=== PATIENT | female | born 1990 ===

== ENCOUNTER 2016-12-02 16:28 | Outpatient (CLI) | payer BC, OTHER ==
[~2016-12-02] VITALS: Ht 154.9 cm; Wt 87.0 kg
[2016-12-02] MEDS ORDERED: ONDANSETRON 4 MG TAB PO PRN (19:15)
[2016-12-02] MEDS ORDERED: ACETAMINOPHEN/CODEINE 300/30MG TAB PO ONE (19:15)
[2016-12-02] MEDS ORDERED: PATIENT'S ALLERGY INFO NEEDS ENTERED SCH (19:30)
[2016-12-02] MEDS ORDERED: PATIENT'S HEIGHT AND/OR WEIGHT NEEDED SCH (19:30)
[2016-12-02 19:50] LABS: BASO % 0.2 %; BASO ABS # 0.02 K/uL (0-0.2); COMPLETE YES; EOS % 0.7 %; HEMATOCRIT 36.3 % (37-47); IG% 1.2 %; LYMPH % 21.7 %; LYMPH ABS # 1.81 K/uL (1.2-3.4); MEAN CELL VOLUME 81.2 fL (80-100); MEAN CORPUSCULAR HEMOGLOBIN 25.5 pg (25-34); MEAN CORPUSCULAR HGB CONC 31.4 g/dl (32-36); MEAN PLATELET VOLUME 12.2 fL (7.4-10.4); MONO % 12.8 %; NEUT % 63.4 %; PLATELET COUNT 267 K/uL (130-400); RED BLOOD COUNT 4.47 M/uL (4.2-5.4); WHITE BLOOD COUNT 8.35 K/uL (4.8-10.8)
[2016-12-02 20:14] LABS: BUN/CREATININE RATIO 14.4 (10-20); CALCIUM 8.7 mg/dl (8.5-10.1); CREATININE 0.63 mg/dl (0.60-1.20); POTASSIUM 3.6 mmol/L (3.5-5.1)
[2016-12-02] MEDS ORDERED: SERT25TA PO (20:14)
[2016-12-02] MEDS ORDERED: FERR50TA3 (20:14)
[2016-12-02] MEDS ORDERED: VALA500T60 PO (20:14)
[2016-12-02] MEDS ORDERED: SERT50TA PO (20:14)
[2016-12-02 20:15] VITALS: Ht 154.9 cm; Wt 87.0 kg
[2016-12-02 20:16] LABS: ALB/GLOB RATIO 0.7 (0.9-2)
[2016-12-02 21:06] LABS: MANUAL MICROSCOPIC REQUIRED? NO; REVIEW REQ? NO; URINE APPEARANCE CLEAR (CLEAR); URINE BILIRUBIN NEG (NEG); URINE COLOR YELLOW; URINE EPITHELIAL CELL AUTO 20-30 /lpf (0-5); URINE NITRITE NEG (NEG); URINE SPECIFIC GRAVITY 1.019 (1.000-1.030); UROBILINOGEN NEG (NEG); ZZUR CULT IF INDIC CLEAN CATCH NO
--- NOTE | 2016-12-02 21:41 | Discharge Instructions ---
Discharge Instructions Date of Service Dec 02, 2016. Admission Reason for Admission: Check Labor Discharge Discharge Diagnosis / Problem: NEW OB PATIENT AT 40.5 WKS Discharge Goals Goal(s): Continuing OB care Activity Recommendations Activity Limitations: as noted below Lifting Limitations: no more than 10 pounds Exercise/Sports Limitations: gradually increase as tolerated May Resume Sexual Activity: after follow-up appointment Shower/Bathe: no limitations Driving or Machine Use: no limitations SPECIAL CARE INSTRUCTIONS: Call Doctor if: * Regular contractions every 5 minutes. * Bleeding * Water breaks or is leaking * Decreased movement * Fever >100.4 degrees F * Pain not relieved by routine measures or pain medication ordered. FOLLOW UP VISIT: Return to Labor and Delivery on 12/05/16_for Induction of labor and call in the morning at 6 am . Follow-up Visit with: When: . Current Hospital Diet Patient's current hospital diet: Regular OB Diet Discharge Diet Recommended Diet: Regular Diet Pending Studies Studies pending at discharge: no Medical Emergencies . Who to Call and When: Medical Emergencies: If at any time you feel your situation is an emergency, please call 911 immediately. . Non-Emergent Contact Non-Emergency issues call your: Surgeon Call Non-Emergent contact if: temperature is above 100.5, your pain is not controlled, your pain is worsening . . "Provider Documentation" section prepared by Adiel Pacheco. . VTE Core Measure Inpt VTE Proph given/why not?: Treatment not indicated
[2016-12-10] MEDS ORDERED: MTR600X PO (09:44)
[2016-12-10] MEDS ORDERED: OXYC-57 PO (09:44)
== END 2016-12-02 22:00 | disposition home or self-care (01) ==
LOC: C.LD 16:28 → C.OPB 16:28 → EEVIPCON 16:28 → C.OPB 22:00
PROVIDERS: ATTEND Obstetrics & Gynecology
DX: O99.89 Other specified diseases and conditions complicating pregnancy, childbirth and the puerperium (principal); R51 Headache; M54.9 Dorsalgia, unspecified; Z3A.40 40 weeks gestation of pregnancy

== ENCOUNTER 2016-12-05 11:46 | Inpatient (IN) | payer OTHER ==
[~2016-12-05] VITALS: Ht 162.6 cm; Wt 87.1 kg
[~2016-12-05 11:46] MED LIST: FERR50TA3; SERT50TA PO; VALA500T60 PO
[2016-12-05] MEDS ORDERED: LACTATED RINGER'S 1000ML 1,000 ML IV PRN (17:13)
[2016-12-05] MEDS ORDERED: DINOPROSTONE 10 MG INSERT PV ONE (17:15)
[2016-12-05 17:19] VITALS: Ht 162.6 cm; Wt 87.1 kg
[2016-12-05 17:32] LABS: MEAN CELL VOLUME 81.6 fL (80-100); MEAN CORPUSCULAR HEMOGLOBIN 26.5 pg (25-34); MEAN CORPUSCULAR HGB CONC 32.5 g/dl (32-36); MEAN PLATELET VOLUME 11.6 fL (7.4-10.4); PLATELET COUNT 243 K/uL (130-400); RED BLOOD COUNT 4.41 M/uL (4.2-5.4)
--- NOTE | 2016-12-05 17:42 | HISTORY & PHYSICAL EXAMINATION ---
DATE OF ADMISSION: 12/05/2016 CHIEF COMPLAINT: Scheduled induction of labor secondary to post-dates and late transfer of care. HISTORY OF PRESENT ILLNESS: The patient is a 26-year-old 1, para 0 at 41 weeks and 1 day gestation who presents to labor and delivery for an induction of labor secondary to post-dates. She has been seeing a physician in [place], [place] for her care due to her experience at [facility], she decided to come to [facility] for her labor and delivery. She was seen here last Monday on December 02 for her contractions and possible induction of labor secondary to being post-dates. She was unable to be induced on Monday due to census and therefore was scheduled for induction today. Her care has been uncomplicated, per patient. records have been reviewed. She is GBS negative. She is currently 1 cm, 40% effaced, and minus 3 station. heart tones are category 1. PAST MEDICAL HISTORY: Significant for depression, anxiety and posttraumatic stress disorder, currently on Zoloft 50 mg daily; history of kidney stones and bilateral hip and back pain and has been going to physical therapy for her pain, oral ulcers and is currently on Valtrex, denies urogenital lesions PAST SURGICAL HISTORY: She had a hematoma on her left shoulder which was removed, on October 2016, normal pathology was noted MEDICATIONS: vitamins, Valtrex 500 mg b.i.d., Zoloft 50 mg daily, iron supplement and vitamins and a Ventolin inhaler as needed. ALLERGIES: No known drug allergies. SOCIAL HISTORY: The patient denies tobacco, alcohol or drug use. LABS: Blood type is O positive, group B strep negative, rubella immune, hepatitis B surface antigen negative, RPR nonreactive. PHYSICAL EXAMINATION: VITAL SIGNS: Blood pressure is 126/82, heart rate 96, temperature 98.4. GENERAL: The patient is awake, alert and oriented x3. She is in no acute distress. HEART: Regular rate and rhythm. LUNGS: Clear to auscultation bilaterally. ABDOMEN: Gravid uterus, appropriate for gestational age. Estimated weight 8-9 pounds. EXTREMITIES: No clubbing, cyanosis or calf tenderness. VAGINAL EXAM: She is 1 cm, 40% effaced, and minus 3 station. heart tones are category 1. ASSESSMENT AND PLAN: A 26-year-old 1, para 0 at 41 weeks and 1 day gestation, will be admitted to labor and delivery for an induction of labor secondary to post-dates. Will begin with Cervidil and will augment labor as needed. Anticipate vaginal delivery. [facility]
[2016-12-05] MEDS ORDERED: SERTRALINE HCL 50 MG TAB PO ONE (20:00)
[2016-12-06] MEDS ORDERED: LACTATED RINGER'S 1000ML 500 ML IV PRN ×2 (07:24→17:46)
[2016-12-06] MEDS ORDERED: OXYTOCIN 30 UNITS/500ML NSS IV PRN (07:30)
[2016-12-06] MEDS: SERTRALINE HCL 50 MG TAB PO SCH (08:04)
[2016-12-06] MEDS: LACTATED RINGER'S 1000ML 1,000 ML IV SCH ×3 (08:21→18:40)
[2016-12-06] MEDS ORDERED: NURSING VERBAL MED ORDER ONE (09:00)
[2016-12-06] MEDS ORDERED: ACETAMINOPHEN 500 MG TAB PO ONE (09:03)
[2016-12-06] MEDS ORDERED: BUTORPHANOL TARTRATE 1 MG/ML VIAL IV PRN (13:00)
[2016-12-06] MEDS ORDERED: BUPIVACAINE 0.25% 30 ML VIAL ONE (17:21)
[2016-12-06] MEDS ORDERED: EpHEDrine SULFATE INJ 50 MG/ML AMP ONE (17:21)
[2016-12-06] MEDS ORDERED: FENTANYL 2MCG/ML ROPIV 1.25MG/ML 100ML BAG EPI ONE (17:22)
[2016-12-06] MEDS ORDERED: FENTANYL CITRATE INJ 50 MCG/1 ML 2 ML VIAL ONE (17:22)
[2016-12-06] MEDS ORDERED: NALOXONE HCL INJ 1 MG in SODIUM CHLORIDE 0.9% 1000ML 1,000 ML IV PRN (17:46)
[2016-12-06] MEDS ORDERED: ONDANSETRON INJ 2 MG/ML 2 ML VIAL IV PRN (18:00)
[2016-12-06] MEDS ORDERED: PROMETHAZINE HCL INJ 6.25 MG in SODIUM CHLORIDE 0.9% 50ML 50 ML IV PRN (18:00)
[2016-12-06] MEDS ORDERED: NALOXONE HCL INJ 0.4 MG/1 ML VIAL/CARP IV PRN (18:00)
[2016-12-06] MEDS ORDERED: NALBUPHINE HCL INJ 10 MG/ML AMP IV PRN (18:00)
[2016-12-06] MEDS ORDERED: EpHEDrine SULFATE INJ 50 MG/ML AMP IV PRN (18:00)
[2016-12-06] MEDS ORDERED: DiphenhydrAMINE HCL 50 MG/ML VIAL IV PRN (18:00)
[2016-12-06] MEDS: FENTANYL 2MCG/ML ROPIV 1.25MG/ML 100ML BAG EPI PRN (19:05)
[2016-12-07] VITALS (14 sets, daily range): BP systolic 97–112; BP diastolic 58–70; PULSE 88–111; TEMP 36.7–37.3; O2SAT 92–98
[2016-12-07] MEDS: FENTANYL 2MCG/ML ROPIV 1.25MG/ML 100ML BAG EPI PRN (01:40)
[2016-12-07] MEDS: LACTATED RINGER'S 1000ML 1,000 ML IV SCH (02:29)
[2016-12-07] MEDS ORDERED: LACTATED RINGER'S 1000ML 1,000 ML IV SCH ×2 (03:42→06:00)
[2016-12-07] MEDS ORDERED: CITRIC ACID/SODIUM CITRATE 15 ML UDC PO STA (03:48)
[2016-12-07] MEDS ORDERED: CEFAZOLIN SOD 2000 MG in DEXTROSE 5% 50ML IV STA (04:02)
[2016-12-07] MEDS ORDERED: FENTANYL CITRATE INJ 50 MCG/1 ML 2 ML VIAL ONE (04:23)
[2016-12-07] MEDS ORDERED: MoRPHine SULFATE PF 1 MG/ML 10 ML AMP/VIAL ONE (04:23)
[2016-12-07] MEDS ORDERED: MIDAZOLAM HCL 1 MG/ML 2ML VIAL ONE (04:23)
[2016-12-07] MEDS ORDERED: OXYTOCIN INJ 10 UNITS/ML VIAL ONE ×2 (05:05)
[2016-12-07] MEDS ORDERED: KETOROLAC TROMETHAMINE 30 MG/ML VIAL ONE (05:05)
[2016-12-07] MEDS ORDERED: LIDOCAINE/EPINEPHRINE 2% 1:200,000 20 ML SDV ONE (05:21)
[2016-12-07] MEDS ORDERED: DC INTRASPINAL MORPHINE PRN (05:30)
[2016-12-07] MEDS ORDERED: CONTINUE MEDICATION ONE (05:30)
[2016-12-07] MEDS ORDERED: MoRPHine SULFATE 2 MG/ML CARP IV PRN (05:30)
[2016-12-07] MEDS ORDERED: NO NARCOTICS OR SEDATIVES SCH (05:30)
[2016-12-07] MEDS ORDERED: MEPERIDINE HCL 25 MG/ML CARP IV PRN (05:30)
[2016-12-07] MEDS ORDERED: MoRPHine SULFATE PF 1 MG/ML 10 ML AMP/VIAL EPI PRN (05:30)
[2016-12-07] MEDS ORDERED: DiphenhydrAMINE HCL 50 MG/ML VIAL IV PRN ×2 (05:30→22:00)
--- NOTE | 2016-12-07 05:58 | Anesthesiology Progress Note ---
Anesthesia Post Op Note Date & Time Dec 07, 2016 at 05:58 Vital Signs Pain Intensity: 10.0 Notes Mental Status: alert / awake / arousable, participated in evaluation Pt Amnestic to Procedure: Yes Nausea / Vomiting: adequately controlled Pain: adequately controlled Airway Patency, RR, SpO2: stable & adequate BP & HR: stable & adequate Hydration State: stable & adequate Neuraxial Anesthesia: was administered, sensory block is resolving Anesthetic Complications: no major complications apparent
[2016-12-07] MEDS ORDERED: BENZOCAINE 20% AER SPR 82.5 GM CAN EXT PRN (06:00)
[2016-12-07] MEDS ORDERED: MAGNESIUM HYDROXIDE SUSP 30 ML UDC PO PRN (06:00)
[2016-12-07] MEDS ORDERED: LANOLIN OINT EXT PRN ×2 (06:00)
[2016-12-07] MEDS ORDERED: SENNA 8.6 MG TAB PO PRN (06:00)
[2016-12-07] MEDS ORDERED: HYDROCORTISONE ACETATE 25 MG SUPP PR PRN (06:00)
[2016-12-07] MEDS ORDERED: SUPERCREAM 0.870 % 15GM JAR EXT PRN (06:00)
--- NOTE | 2016-12-07 06:13 | [facility] Post Operative Brief Note ---
Immediate Operative Summary Operative Date Dec 07, 2016. Pre-Operative Diagnosis Failure to decend and maternal exhaustion. Post-Operative Diagnosis same Procedure(s) Performed c/sec Surgeon Dr Troncoso Cloth Colorer Surgeon(s) Tejal Soliman RN Estimated Blood Loss 700 Findings dictated Fluids (cc crystalloids) 1500 Specimens Placenta Cord Blood Cord Blood Gases (Arterial and Venous) Drains 150 Complication(s) None Disposition Recovery Room / PACU
[2016-12-07] MEDS: OXYTOCIN INJ 20 UNITS in LACTATED RINGER'S 1000ML 1,000 ML IV SCH ×2 (06:26→14:57)
[2016-12-07] MEDS: DOCUSATE SODIUM 100 MG CAP PO SCH ×2 (08:30→19:58)
[2016-12-07] MEDS: SIMETHICONE 80 MG CHEW PO SCH ×4 (08:30→19:58)
[2016-12-07] MEDS: SERTRALINE HCL 50 MG TAB PO SCH (08:30)
[2016-12-07] MEDS: PRENATAL VITAMIN TAB PO SCH (08:31)
[2016-12-07] MEDS ORDERED: ALBUTEROL HFA 8 GM INHALER INH PRN (09:30)
--- NOTE | 2016-12-07 10:02 | OPERATIVE REPORT ---
DATE OF OPERATION: 12/07/2016 INDICATION FOR PROCEDURE: This is a 26-year-old who has received care in [place]. She showed up at 41 weeks, unassigned. The patient to see Dr. Farmer. She had been scheduled for induction with OB provider on 12/05/2016. The patient expressed dissatisfaction with the provider and wanted to deliver at [facility]. Decision therefore was made about by Dr. Farmer to have patient induced on the same day, 12/05/2016 at [facility]. The patient was admitted on the above-mentioned day, she received Cervidil on that day. On the morning of 12/06/2016, she was started on Pitocin. The patient received Pitocin all day and had spontaneous rupture of membranes around 1400 hours. She progressed to fully dilation around 2:00 a.m. on 12/07/2016. After an hour and a half of pushing there was no change in station. The patient at this point expressed severe fatigue. She was exhausted and could not push anymore. We discussed risks of continuing attempt to push including delaying and having her rest a little bit and pushing again, patient absolutely was not interested and did not want any more pushing. She was insistent on having . After risks, benefits and alternatives were discussed with the patient, we decided to proceed with a . PREOPERATIVE DIAGNOSES: 1. Failure to descend. 2. Maternal exhaustion. POSTOPERATIVE DIAGNOSES: Same. PROCEDURES: Primary section. SURGEON: Dr. Troncoso. HOSPICE CARE CONSULTANT: Lesley Soliman RN. ESTIMATED BLOOD LOSS: 700 mL. IV FLUIDS: 1600 mL. URINE OUTPUT: 150 mL clear urine at the end of the procedure. FINDINGS: Live infant male weighing 9 pounds 9 ounces. The uterus and adnexa appeared grossly normal. The bowel had adhesions, which was adhesions of the large bowel to the left side of the uterus on the side of the broad ligament. This was extensive adhesion, decision therefore was made not to dissect the adhesions. SPECIMENS: 1. Placenta. 2. Cord blood. 3. Cord gases. COMPLICATIONS: None. DISPOSITION: Stable to recovery room. DESCRIPTION OF PROCEDURE: The patient was taken to the operating room where she was prepped and draped in normal sterile fashion. Timeout was called. A Pfannenstiel incision was made with a scalpel and carried down to the fascia. Fascia was incised in the midline and extended laterally on both sides. The rectus abdominis muscle was identified. Peritoneum was entered sharply. Once inside the abdomen, the findings were as dictated above. An Moises retractor was placed in the abdomen for retraction. The vesicouterine peritoneum was sharply dissected off the lower segment of the uterus. A low transverse incision was made in the uterus and extended laterally on both sides using bandage scissors. Infant's head was delivered atraumatically. Mouth was suctioned, cord was clamped and handed over to the awaiting pediatric team. 's weight is 9 and 9, is in the pediatric record. The placenta was manually removed. Uterus was exteriorized and cleared of all clots and debris. Uterus was closed in 2 layers using Vicryl stitch. The vesicouterine peritoneum was reapproximated using plain suture. Copious amount of irrigation was used to irrigate the abdomen. The Moises retractor was removed and the peritoneum closed in a running fashion using plain suture. The rectus abdominis muscle was loosely approximated using a [id number] plain suture. The fascia was closed in a running fashion using Vicryl stitch, subQ space was reapproximated using plain suture and skin was closed with miki. All instruments are removed from the abdomen and accounted for x2 including needles, sponges and retractors. Baby and mother are doing well in recovery. I attest to the content of the Intraoperative Record and any orders documented therein. Any exception s are noted below.
[2016-12-07] MEDS: KETOROLAC TROMETHAMINE 30 MG/ML VIAL IV. PRN ×2 (10:15→20:00)
--- NOTE | 2016-12-07 20:25 | OB/GYN Progress Note ---
REEL SLITTER Progress Note Date of Service: Dec 07, 2016. Postop check Patient is seen and examined Feels well, no complaints Pain is under control with meds No CP/ SOB/ Dizziness/ N&V/ VB/ Leg pain Not OOB yet Tolerating clears and regular diet Flatus+ Bottle feeding her baby Date Time Temp Pulse Resp B/P (MAP) Pulse Ox O2 Delivery O2 Flow Rate FiO2 12/07/16 17:15 20 98 12/07/16 16:15 20 96 12/07/16 16:15 36.9 96 20 105/59 (74) 96 Room Air 12/07/16 16:15 96 Room Air 12/07/16 15:15 16 95 12/07/16 14:15 16 97 12/07/16 13:15 16 94 12/07/16 12:15 16 96 12/07/16 11:15 20 97 12/07/16 10:15 18 96 12/07/16 10:15 37.3 96 18 112/70 (84) 96 Room Air 12/07/16 09:15 96 Room Air 12/07/16 09:15 96 Room Air 12/07/16 09:15 18 96 8-Hour Column 12/07/16 12/07/16 12/08/16 15:59 23:59 07:59 Intake Total 1499 ml Output Total 500 ml Balance 999 ml 24-Hour Column 12/08/16 07:59 Intake Total 1499 ml Output Total 500 ml Balance 999 ml PE: General: Alert, orientedx3, NAD CVS: S1S2 RRR Lungs: CTAB Abd: soft, NT, ND, BS+, Dressing dry intact No VB Ext: NT, 2+/2+ edema AP: 26 yo female s/p PCS , pod#0 VSS Afebrile doing well Continue to routine postop care Encourage PO intake, soraya kaufman D/Carlos pinto in am
[2016-12-07] MEDS ORDERED: PROMETHAZINE HCL INJ 25 MG in SODIUM CHLORIDE 0.9% 50ML 50 ML IV PRN (22:00)
[2016-12-07] MEDS ORDERED: ZOLPIDEM TARTRATE 5 MG TAB PO PRN (22:00)
[2016-12-07] MEDS ORDERED: KETOROLAC TROMETHAMINE 30 MG/ML VIAL IV. PRN (22:00)
[2016-12-07] MEDS ORDERED: ONDANSETRON INJ 2 MG/ML 2 ML VIAL IV PRN (22:00)
[2016-12-07] MEDS ORDERED: MEPERIDINE HCL 50 MG/ML CARP IV PRN ×2 (22:00)
[2016-12-08] MEDS ORDERED: COUGH DROP (SUGAR FREE) LOZ 24 LOZ/1 BOX ONE (03:31)
[2016-12-08 03:35] VITALS: BP 107/68; PULSE 102; TEMP 37; O2SAT 96
[2016-12-08] MEDS: OXYCODONE/ACETAMINOPHEN 5-325 TAB PO PRN ×4 (06:20→20:09)
[2016-12-08] MEDS: IBUPROFEN 600 MG TAB PO PRN ×4 (06:23→20:09)
[2016-12-08 06:32] LABS: HEMATOCRIT 28.4 % (37-47); MEAN CELL VOLUME 81.4 fL (80-100); MEAN CORPUSCULAR HEMOGLOBIN 25.8 pg (25-34); MEAN CORPUSCULAR HGB CONC 31.7 g/dl (32-36); MEAN PLATELET VOLUME 10.5 fL (7.4-10.4); PLATELET COUNT 269 K/uL (130-400); RED BLOOD COUNT 3.49 M/uL (4.2-5.4); WHITE BLOOD COUNT 15.98 K/uL (4.8-10.8)
[2016-12-08 07:09] LABS: ANISOCYTOSIS PRESENT; BASO % 0.2 %; BASO ABS # 0.03 K/uL (0-0.2); COMPLETE YES; EOS % 1.1 %; IG% 1.1 %; LARGE PLATELETS 1+; LYMPH % 13.2 %; LYMPH ABS # 2.11 K/uL (1.2-3.4); MONO % 12.1 %; NEUT % 72.3 %
[2016-12-08] MEDS: PRENATAL VITAMIN TAB PO SCH (08:14)
[2016-12-08] MEDS: SERTRALINE HCL 50 MG TAB PO SCH (08:15)
[2016-12-08] MEDS: DOCUSATE SODIUM 100 MG CAP PO SCH ×2 (08:15→20:08)
[2016-12-08] MEDS: SIMETHICONE 80 MG CHEW PO SCH ×4 (08:15→20:08)
[2016-12-08] MEDS: FERROUS SULFATE 325 MG TAB PO SCH (08:15)
[2016-12-08 08:20] VITALS: BP 111/72; PULSE 108; TEMP 36.8; O2SAT 99
--- NOTE | 2016-12-08 11:18 | OB/GYN Progress Note ---
PAPER RECLAIMING MACHINE OPERATOR Progress Note Date of Service Dec 08, 2016. Subjective conversation w/ patient, physical exam Ambulation: ambulating normally Voiding: no voiding problems Passing Gas: Yes Diet Tolerance: Regular Diet Lochia: Small Feeding Type: Breast Feeding Pain: 10/03 Notes: Doing well. Pain well controlled. Hodge catheter removed this AM. Incision dressing dry. Tolerating regular diet, +Flatus. Objective Vital Signs Date Time Temp Pulse Resp B/P (MAP) Pulse Ox O2 Delivery O2 Flow Rate FiO2 12/08/16 08:20 36.8 108 16 111/72 (85) 99 Room Air 12/08/16 08:20 Room Air 12/08/16 03:35 37.0 102 18 107/68 (81) 96 Room Air 12/07/16 23:45 36.7 88 18 97/62 (74) 96 Room Air 12/07/16 23:45 96 Room Air 12/07/16 21:15 18 93 12/07/16 20:15 16 92 12/07/16 19:50 36.9 111 16 99/58 (72) 93 Room Air 12/07/16 19:15 16 93 12/07/16 17:15 20 98 12/07/16 16:15 20 96 12/07/16 16:15 36.9 96 20 105/59 (74) 96 Room Air 12/07/16 16:15 96 Room Air 12/07/16 15:15 16 95 12/07/16 14:15 16 97 12/07/16 13:15 16 94 12/07/16 12:15 16 96 Physical Exam General Appearance: WELL-APPEARING Respiratory/Chest: chest non-tender, lungs clear Cardiovascular: regular rate, rhythm Abdomen: normal bowel sounds, soft Fundus: Firm Incision Description: Clean, Dry & Intact Extremities: normal range of motion, non-tender, no calf tenderness Laboratory Results Last 24 Hours Test 12/08/16 06:24 White Blood Count 15.98 K/uL Red Blood Count 3.49 M/uL Hemoglobin 9.0 g/dL Hematocrit 28.4 % Mean Corpuscular Volume 81.4 fL Mean Corpuscular Hemoglobin 25.8 pg Mean Corpuscular Hemoglobin Concent 31.7 g/dl Platelet Count 269 K/uL Mean Platelet Volume 10.5 fL Neutrophils (%) (Auto) 72.3 % Lymphocytes (%) (Auto) 13.2 % Monocytes (%) (Auto) 12.1 % Eosinophils (%) (Auto) 1.1 % Basophils (%) (Auto) 0.2 % Neutrophils # (Auto) 11.57 K/uL Lymphocytes # (Auto) 2.11 K/uL Monocytes # (Auto) 1.93 K/uL Eosinophils # (Auto) 0.17 K/uL Basophils # (Auto) 0.03 K/uL RDW Standard Deviation 60.3 fL RDW Coefficient of Variation 20.9 % Immature Granulocyte % (Auto) 1.1 % Immature Granulocyte # (Auto) 0.17 K/uL Large Platelets 1+ Anisocytosis PRESENT Assessment and Plan Post-Op Day Number: 1 Continue Routine Care: -Continue routine postop care -Advance diet and activity as tolerated
[2016-12-08 12:00] VITALS: BP 123/69; PULSE 88; TEMP 36.9
[2016-12-08 15:40] VITALS: BP 117/79; PULSE 98; TEMP 36.9; O2SAT 99
[2016-12-08] MEDS ORDERED: BISACODYL 5 MG TABEC PO ONE (22:00)
[2016-12-08 23:25] VITALS: BP 112/68; PULSE 90; TEMP 36.8; O2SAT 96
[2016-12-09] MEDS: IBUPROFEN 600 MG TAB PO PRN ×5 (01:46→21:26)
[2016-12-09] MEDS: OXYCODONE/ACETAMINOPHEN 5-325 TAB PO PRN ×5 (01:47→21:27)
[2016-12-09] MEDS ORDERED: BISACODYL 10 MG SUPP PR PRN (06:00)
[2016-12-09 06:41] LABS: HEMATOCRIT 25.8 % (37-47)
[2016-12-09 07:45] VITALS: PULSE 80; TEMP 36.5
[2016-12-09] MEDS: DOCUSATE SODIUM 100 MG CAP PO SCH ×2 (08:05→19:49)
[2016-12-09] MEDS: PRENATAL VITAMIN TAB PO SCH (08:06)
[2016-12-09] MEDS: SIMETHICONE 80 MG CHEW PO SCH ×4 (08:06→19:49)
[2016-12-09] MEDS: SERTRALINE HCL 50 MG TAB PO SCH (08:06)
[2016-12-09] MEDS: FERROUS SULFATE 325 MG TAB PO SCH ×2 (08:06→19:49)
--- NOTE | 2016-12-09 12:20 | OB/GYN Progress Note ---
UNIVERSITY ADMINISTRATOR Progress Note Date of Service: Dec 09, 2016. Patient is seen and examined. She feels well, no complaints. Pain is under control with oral meds. Ambulating without dizziness Voiding without difficulty Tolerating regular diet with out N&V Flatus + BM NEG Bleeding is minimal No fever/ chills/ CP/ SOB/ N&V/ Leg pain Bottle feeding without problems Date Time Temp Pulse Resp B/P (MAP) Pulse Ox O2 Delivery O2 Flow Rate FiO2 12/09/16 07:45 36.5 80 16 Room Air 12/09/16 07:45 Room Air 12/08/16 23:25 36.8 90 18 112/68 (83) 96 Room Air 12/08/16 23:25 96 Room Air 12/08/16 15:40 Room Air 12/08/16 15:40 36.9 98 16 117/79 (92) 99 Room Air Last 24 Hours Test 12/09/16 06:09 Hemoglobin 8.3 g/dL Hematocrit 25.8 % PE: General: Alert, orientedx3, NAD CVS: S1S2 RRR Lungs; CTAB Abd: soft, NT, fundus firm, below Umbilicus Incision: Clean, dry, intact Perineum intact, Lochia rubra minimal Ext; NT, no edema AP: 3 yo s/p C Section, pod# 2 VSS Afebrile doing well Continue routine postop care Encourage ambulation, PO intake Anemic: start iron bid All questions were answered D/C home in am
[2016-12-09 15:30] VITALS: BP 146/75; PULSE 89; TEMP 36.8; O2SAT 99
--- NOTE | 2016-12-09 17:06 | OB/GYN Progress Note ---
SHEEP SORTER Progress Note Date of Service: Dec 09, 2016. Patient is reevaluated She c/o left luna / bone pain since this afternoon Walking and SCD's made it worse But she reports it at rest too 6/10 in intensity She also c/o more swelling on that side VSS afebrile Ext: Anaid's sign neg on right side, minimal pretibial edema + Anaid's sign on the left ( but reports pain anterior tibia), no cords or erythema, no bruise, tender by patient to touch, 1+ pretibial and dorsum of foot edema Plan: pain meds, Doppler US and reevaluate
[2016-12-09 19:30] VITALS: BP 138/82; PULSE 88; TEMP 36.8
--- NOTE | 2016-12-09 19:35 | DIAGNOSTIC IMAGING REPORT ---
LEFT LOWER EXTREMITY VENOUS DOPPLER HISTORY: pain, s/p COMPARISON STUDY: Left leg edema. FINDINGS: There is normal compressibility, flow, and augmentation within the left lower extremity deep venous system. Mild pretibial subcutaneous edema. IMPRESSION: No DVT within the left lower extremity. Electronically signed by: Stoney Longo M.D. 12/09/2016 7:34 PM Dictated Date/Time: 12/09/2016 7:34 PM
--- NOTE | 2016-12-09 20:25 | OB/GYN Progress Note ---
BLENDING TANK HELPER Progress Note Date of Service: Dec 09, 2016. Patient is reevaluated Her leg feels better US is negative for DVT She had a benign cyst removed from her left shoulder skin 2 weeks ago. She is due for removal of stitches She was called that it was benign She desires them removed here There were 3 stitches on posterior shoulder skin, appeared to be 4-0 PDS: I removed them all No complications Skin appears to be healing well Patient is pleased
[2016-12-09 23:10] VITALS: BP 123/79; PULSE 85; TEMP 36.8; O2SAT 96
[2016-12-10] MEDS: IBUPROFEN 600 MG TAB PO PRN ×3 (02:35→11:54)
[2016-12-10] MEDS: OXYCODONE/ACETAMINOPHEN 5-325 TAB PO PRN ×3 (02:36→11:53)
[2016-12-10 07:05] VITALS: BP 126/86; PULSE 76; TEMP 36.8; O2SAT 100
[2016-12-10] MEDS: SERTRALINE HCL 50 MG TAB PO SCH (07:18)
[2016-12-10] MEDS: DOCUSATE SODIUM 100 MG CAP PO SCH (07:18)
[2016-12-10] MEDS: SIMETHICONE 80 MG CHEW PO SCH (07:18)
[2016-12-10] MEDS: FERROUS SULFATE 325 MG TAB PO SCH (07:18)
[2016-12-10] MEDS: PRENATAL VITAMIN TAB PO SCH (07:18)
[2016-12-10] MEDS ORDERED: OXYC-57 PO (09:44)
[2016-12-10] MEDS ORDERED: MTR600X PO (09:44)
--- NOTE | 2016-12-10 09:45 | Discharge Instructions ---
Discharge Instructions Date of Service Dec 10, 2016. Admission Reason for Admission: Induction Discharge Discharge Diagnosis / Problem: Primary section Discharge Goals Goal(s): Routine recovery after Activity Recommendations Activity Limitations: per Instructions/Follow-up section . Instructions / Follow-Up Instructions / Follow-Up ACTIVITY RECOMMENDATIONS: * Gradual return to full activity over the next 2-3 weeks. * No lifting - nothing heavier than baby over the next 2-3 weeks. * Do not engage in vigorous exercise, sexual activity or sports until cleared by your physician. * Do not drive or operate any motorized equipment until cleared by your physician. * You may shower/bathe daily. BREAST CARE: If you are not breast feeding: * Wear a supportive bra 24 hours a day for one to two weeks. * Avoid stimulating your breasts and nipples as much as possible during the first few weeks after delivery. * When taking a shower, have the warm water hit your back, not breasts. * When your breasts feel full, apply ice packs. Usually three to four times a day helps ease the discomfort. * Take a mild pain medication (Tylenol/Motrin) when you are uncomfortable. If breast feeding: * Use breast milk to lubricate nipples. Lansinoh cream may be used for sore nipples. You do not need to remove cream prior to breast feeding. If using a different brand of cream, check the label for directions regarding removal of cream prior to nursing. * Wear a supportive bra. * If having problems with breasts or breast feeding, call a diet consultant or your health care provider. OVER THE COUNTER MEDICATION: * For discomfort or pain, you may use Acetaminophen (Tylenol), Ibuprofen (Advil ), or Naproxen (Aleve) following the package directions. * For constipation you may use Colace following the package directions. SPECIAL CARE INSTRUCTIONS: When you are discharged from the hospital, it is important for you to follow the instructions listed below: * During the first week at home, you should be able to care for yourself and your baby. In addition, the usual light household activities are encouraged. * Limit your activities to the way you feel. Do not try to clean the house or move furniture. Be sensible. * If you actively engage in sports and have done so up until the time of your delivery, you may resume these activities as soon as you feel able. This may take up to one month or even longer. Use good judgment. * Continue to take your vitamins for at least six weeks after the of your baby. * Your diet need not be limited unless you were on a special diet before your delivery. Breast-feeding mothers need around 2500 calories per day and at least 64-80 ounces of fluid per day (8 to 10 glasses). * You should eat foods from the four major food groups. Crash diets or fad diets are to be avoided. Eating lean meats, fresh fruits and vegetables, low-fat dairy products, high fiber foods and a regular exercise program, will help you get back to your pre- weight without putting your health at risk. * Constipation is sometimes a problem after delivery. Take a mild laxative as needed. If breast feeding, Milk of Magnesia is acceptable to use. You may use a suppository or Fleets enema if no episiotomy. * A daily shower or tub bath is suggested. Be sure to thoroughly and gently dry the perineum. * A bloody vaginal discharge will usually continue until around four weeks post . A small amount of bleeding may continue for as long as six weeks. Vaginal discharge changes from the bright red bleeding after delivery to pink then brownish and finally yellowish-pink before becoming white and disappearing. * Bleeding may increase with activity. Your first period may come in 4-8 weeks. If you are breast feeding, your period may be delayed even longer. * Dysart (sex) can begin whenever both you and your partner feel comfortable and do not have any form of genital infection. It is recommended that you wait at least six weeks for internal and external healing to occur. If you have questions, please talk to your health care practitioner. A condom should be used to prevent infection and . * Foreplay, gentle intercourse and lubrication is very important the first several times to prevent pain. A water-based lubricant such as K-Y jelly or Astroglide may be used. * Tampons and/or Douching should be avoided until after six weeks check-up. * If you have RH negative blood and your baby is RH positive, you will receive RHOGAM by injection prior to discharge. The nurse will give you a card to keep with you that has the date and place that you received RHOGAM after delivery. * During your care, you had a Rubella screen done to check for the presence of rubella antibodies in your blood. If your test was negative, you will receive a Rubella vaccine prior to discharge. This vaccine may cause a fever, soreness at the injection site and flu-like symptoms. If these symptoms persist, notify your health care practitioner. is not advised for three months after a Rubella vaccine. * Verbalizes understanding of car seat law as reviewed with patient nursing. * Car Seat hand-out given and reviewed with patient by nursing. * Shaken baby information reviewed with patient by nursing. Call you doctor if: * Heavy bleeding (saturating several pads an hour) or passing clots the size of your fist. * A fever >101 degrees F (38.3 degrees C) on two occasions four hours apart and /or chills. * Unusual pain in the pelvic or vaginal areas. Pain should improve each day . * Call the doctor for any increased redness, drainage or swelling around the incision and any pain unrelieved by prescribed pain medication. * Any signs or symptoms of phlebitis (possible blood clots forming in the veins ): leg pain, warm, red or swollen area on leg. * "Baby Blues" lasting longer than two weeks. If you have any questions or concerns, call your health care practitioner at . FOLLOW-UP VISIT: * Incision check (staple removal) in 1 week. Please call doctor's office at to set up appointment. * Please call the office at to schedule a 6 week examination. It is important you keep this appointment. * It is important for you to make arrangements for either yearly or twice yearly check-ups thereafter. Current Hospital Diet Patient's current hospital diet: Regular OB Diet Discharge Diet Recommended Diet: Regular OB Diet Procedures Procedures Performed: c/sec Pending Studies Studies pending at discharge: no Medical Emergencies . Who to Call and When: Medical Emergencies: If at any time you feel your situation is an emergency, please call [phone] immediately. . Non-Emergent Contact Non-Emergency issues call your: Primary Care Provider, [employer]ender Farm Worker . . "Provider Documentation" section prepared by Antwan Kennedy. . VTE Core Measure Inpt VTE Proph given/why not?: Treatment not indicated
--- NOTE | 2016-12-10 09:47 | OB/GYN Progress Note ---
CADDIE Progress Note Date of Service Dec 10, 2016. Subjective conversation w/ patient, physical exam Ambulation: ambulating normally Voiding: no voiding problems Passing Gas: Yes Diet Tolerance: Regular Diet Lochia: Small Pain: 10/03 Notes: Doing well. Pain well controlled. Tolerating regular diet. Ambulating without assistance. Incision remains c/d/i. Would like to go home today. Objective Vital Signs Date Time Temp Pulse Resp B/P (MAP) Pulse Ox O2 Delivery O2 Flow Rate FiO2 12/10/16 07:05 36.8 76 20 126/86 (99) 100 Room Air 12/10/16 07:00 Room Air 12/09/16 23:10 96 Room Air 12/09/16 23:10 36.8 85 18 123/79 (94) 96 Room Air 12/09/16 19:30 36.8 88 20 138/82 (100) Room Air 12/09/16 15:30 99 Room Air 12/09/16 15:30 36.8 89 20 146/75 (98) Room Air Physical Exam General Appearance: WELL-APPEARING Respiratory/Chest: chest non-tender, lungs clear Cardiovascular: regular rate, rhythm Abdomen: normal bowel sounds, soft Fundus: Firm Incision Description: Clean, Dry & Intact Extremities: normal range of motion, non-tender, no calf tenderness Assessment and Plan Post-Op Day Number: 3 Continue Routine Care: -D/C home today -F/U in 1 week for staple removal.
[2016-12-10] MEDS ORDERED: DIPHTHERIA/TETANUS/PERTUSSIS 0.5 ML SYR/VIAL IM. ONE (11:15)
[2016-12-10 12:07] VITALS: BP_DIAS 86; PULSE 76; TEMP 36.8
--- NOTE | 2017-01-04 11:40 | Discharge Summary ---
Discharge Summary Date of Service Jan 04, 2017. Discharge Summary Admission Date: Dec 05, 2016 at 15:19 Discharge Date: Dec 10, 2016 Discharge Disposition: Home Principal Diagnosis: Procedures: section Admission Information HPI (per Admitting provider): This is a 26-year-old who was admitted for induction on 12/05/2016 for postdates. Patient became fully dilated on 12/07/2016 at ab 0200 There was failure to descent after full dilation. Patient therefore underwent section to deliver a live male weighing 4335 grams 8/9. .Details of surgery and pediatric information is in the respective records.Postoperative patient did well .she met all milestones for recovery in recovery on postoperative day1 ,2 and 3.Patient continued to improve. she tolerating by mouth food and meds. was discharged home in stable condition on . Hospital Course See dictation under HPI Discharge Instructions See disch instructions
== END 2016-12-10 13:34 | disposition home or self-care (01) | DRG 766 ==
LOC: C.LD 15:19 → C.OBG 12-07 09:04
PROVIDERS: ADMIT Obstetrics & Gynecology; ATTEND Obstetrics & Gynecology
PROC: 3E033VJ Introduction of Other Hormone into Peripheral Vein, Percutaneous Approach (ICD-10-PCS; principal; 2016-12-07 03:50)
PROC: 10D00Z1 Extraction of Products of Conception, Low, Open Approach (ICD-10-PCS; principal; 2016-12-07 03:50)
PROC: 3E0P7GC Introduction of Other Therapeutic Substance into Female Reproductive, Via Natural or Artificial Opening (ICD-10-PCS; principal; 2016-12-07 03:50)
DX: O48.0 Post-term pregnancy (principal); O75.81 Maternal exhaustion complicating labor and delivery; O90.89 Other complications of the puerperium, not elsewhere classified; M79.662 Pain in left lower leg; Z37.0 Single live birth; O61.0 Failed medical induction of labor; O62.0 Primary inadequate contractions; O99.344 Other mental disorders complicating childbirth; F32.9 Major depressive disorder, single episode, unspecified; F41.9 Anxiety disorder, unspecified; F43.10 Post-traumatic stress disorder, unspecified; O99.62 Diseases of the digestive system complicating childbirth; K12.0 Recurrent oral aphthae; O99.02 Anemia complicating childbirth; D64.9 Anemia, unspecified; Z79.899 Other long term (current) drug therapy; Z23 Encounter for immunization; Z3A.41 41 weeks gestation of pregnancy

== ENCOUNTER 2017-04-09 10:45 | Emergency (ER) | payer OTHER ==
[~2017-04-09] VITALS: Ht 154.9 cm; Wt 67.6 kg
[~2017-04-09 10:45] MED LIST changes: +MTR600X PO; +OXYC-57 PO
[2017-04-09 10:55] VITALS: TEMP 36.8; Ht 154.9 cm; Wt 67.6 kg
[2017-04-09] MEDS ORDERED: KETOROLAC TROMETHAMINE 30 MG/ML VIAL IV STA (11:30)
[2017-04-09] MEDS ORDERED: ONDANSETRON INJ 2 MG/ML 2 ML VIAL IV STA (11:30)
[2017-04-09] MEDS ORDERED: SODIUM CHLORIDE 0.9% 1000ML 1,000 ML IV STA (11:30)
[2017-04-09 11:43] LABS: BASO % 0.8 %; BASO ABS # 0.05 K/uL (0-0.2); COMPLETE YES; EOS % 2.8 %; HEMATOCRIT 42.8 % (37-47); IG% 0.5 %; LYMPH % 32.7 %; LYMPH ABS # 2.12 K/uL (1.2-3.4); MEAN CELL VOLUME 84.3 fL (80-100); MEAN CORPUSCULAR HEMOGLOBIN 27.8 pg (25-34); MEAN CORPUSCULAR HGB CONC 32.9 g/dl (32-36); MEAN PLATELET VOLUME 10.4 fL (7.4-10.4); MONO % 11.1 %; NEUT % 52.1 %; PLATELET COUNT 388 K/uL (130-400); RED BLOOD COUNT 5.08 M/uL (4.2-5.4); WHITE BLOOD COUNT 6.49 K/uL (4.8-10.8)
[2017-04-09] MEDS ORDERED: CLON0.5T3 PO (11:51)
[2017-04-09] MEDS ORDERED: CITA20TA4 PO (11:51)
[2017-04-09 11:53] LABS: BUN/CREATININE RATIO 16.4 (10-20); CALCIUM 9.1 mg/dl (8.5-10.1); CREATININE 0.75 mg/dl (0.60-1.20); POTASSIUM 3.8 mmol/L (3.5-5.1); URINE APPEARANCE CLEAR (CLEAR); URINE BILIRUBIN NEG (NEG); URINE COLOR YELLOW; URINE NITRITE NEG (NEG); URINE SPECIFIC GRAVITY 1.025 (1.000-1.030); UROBILINOGEN NEG (NEG)
[2017-04-09 11:54] LABS: MANUAL MICROSCOPIC REQUIRED? NO; REVIEW REQ? NO
--- NOTE | 2017-04-09 13:07 | DIAGNOSTIC IMAGING REPORT ---
PELVIC ULTRASOUND, TRANSABDOMINAL AND TRANSVAGINAL HISTORY: EVAL PELVIC PAIN, IUD COMPARISON: None. FINDINGS: Uterus: Unremarkable. Endometrial stripe: The intrauterine device is in good position. The endometrium measures 3 mm in thickness. Right ovary: Normal in size and demonstrates normal color flow. Left ovary: Normal in size and demonstrates normal color flow. Small tubular structure adjacent to the left ovary on a single image only likely represents the adjacent bowel. This is only seen on image 21 of 68. Miscellaneous:Trace pelvic free fluid. IMPRESSION: 1. Intrauterine device is in good position. 2. Small tubular structure adjacent to the left ovary only seen on a single image which likely represents adjacent bowel. However, recommend correlation with a test to exclude the less likely possibility of an ectopic . Electronically signed by: Stoney Longo M.D. 04/09/2017 1:06 PM Dictated Date/Time: 04/09/2017 1:03 PM
--- NOTE | 2017-04-09 13:36 | EMERGENCY ROOM VISIT NOTE ---
History First contact with patient: 11:11 Chief Complaint: PELVIC PAIN Stated Complaint: LOWER BACK PAIN, PAIN IN PRIVATE AREA, HAVE IUD History of Present Illness Patient is a 26-year-old white female who presents to the emergency department for evaluation of pelvic pain 1 week. She had mild, tolerable at 5/10 lower pelvic pain that radiated through to her back for about a week. The pain was alleviated with ibuprofen 600 mg that she had left over from her prior C- section. 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 She is unsure whether this contributed, but she states that she woke up around 4:00 this morning with very severe, sharp stabbing pelvic pain. The pain radiates to the left lower quadrant, and around to her back. She reports associated headache, nausea and vomiting. She did try taking Zofran and Percocet that she had left over from her . She rates her pain an 8/10 presently. She has had an IUD in place for roughly 2 months. She had a string check at 1 month and reported everything was fine. She denies any other gynecologic history including ovarian cyst or pelvic infections. She doesn't that she had a pelvic exam with cultures prior to the IUD being placed 2 months ago. She notes her bowel movements have been softener last was 2 days ago. She noted her urine was dark. She reports a history of kidney stones and frequent UTIs. She also noted some external genital itching yesterday and began using Vagisil wipes. She is sexually active with her boyfriend. She denies any vaginal discharge or discomfort with intercourse. She does know however, that she has appointment with her sales solutions associate for a pelvic exam in 2 days she will undergo STI testing. She reports that her boyfriend and she are both concerned due to his past partner. She reports the boyfriend is also being tested. Again, the patient denies that she has ever tested positive for sexually transmitted infection. Review of Systems Review of systems as per HPI. All other systems reviewed were negative. 10 systems reviewed. Past Medical/Surgical History Medical Problems: (1) Anxiety Disorder, Unspecified (2) Back pain affecting in third trimester (3) Depression (4) Edema of lower extremity in third trimester, antepartum (5) Frequent UTI (6) Kidney stones (7) Lumbago (8) Post-dates (9) Post-Traumatic Stress Disorder, Unspecified Surgical Problems: (1) H/O section Electronic medical records are reviewed and summarized as above/below. See Problem List. Social History Smoking Status: Current Every Day Smoker Marital Status: in relationship Housing Status: lives with family Occupation Status: employed Current/Historical Medications Scheduled Citalopram Hydrobromide (Citalopram Hydrobromide), 20 MG PO DAILY Scheduled PRN Clonazepam (Klonopin), 0.5 MG PO BID PRN for Anxiety Valacyclovir (Valtrex), 500 MG PO DAILY PRN for BREAKOUT Miscellaneous Medications Ferrous Sulfate (Iron (Ferrous Sulfate)) Physical Exam Vital Signs Date Time Temp Pulse Resp B/P (MAP) Pulse Ox O2 Delivery O2 Flow Rate FiO2 04/09/17 14:11 68 18 118/76 99 04/09/17 13:13 65 20 117/72 99 Room Air 04/09/17 10:55 36.8 81 18 115/73 98 Room Air Physical Exam CONSTITUTIONAL: Patient is a well-appearing 26-year-old white female who is awake and alert and in no acute distress. EYES: Pupils equal, round, reactive to light and accommodation. EOMs intact without nystagmus. Sclera are anicteric. ENT: Tympanic membranes intact, with normal landmarks. External canals are clear. Oral and nasopharynx are clear. Mucous membranes are moist, no lesions , tongue and gums appear normal. CARDIOVASCULAR: Regular rate and rhythm, with normal S1 and S2, no murmur or gallop or rub is heard. No carotid bruits auscultated. No JVD. Peripheral pulses easily palpable. RESPIRATORY: Breath sounds equal and clear to auscultation without wheezes, rales, or rhonchi heard. Full and equal chest expansion without accessory muscle use or retractions. ABDOMEN: Bowel sounds are present. Well-healed Pfannenstiel surgical scar. Abdomen is soft, nondistended, mildly tender in the suprapubic and the left lower quadrant, without guarding, rebound or rigidity. INTEGUMENTARY: No lesions or rash, normal skin turgor. LYMPH: No lymphadenopathy. Medical Decision & Procedures ER Provider Diagnostic Interpretation: PELVIC ULTRASOUND, TRANSABDOMINAL AND TRANSVAGINAL HISTORY: EVAL PELVIC PAIN, IUD COMPARISON: None. FINDINGS: Uterus: Unremarkable. Endometrial stripe: The intrauterine device is in good position. The endometrium measures 3 mm in thickness. Right ovary: Normal in size and demonstrates normal color flow. Left ovary: Normal in size and demonstrates normal color flow. Small tubular structure adjacent to the left ovary on a single image only likely represents the adjacent bowel. This is only seen on image 21 of 68. Miscellaneous:Trace pelvic free fluid. IMPRESSION: 1. Intrauterine device is in good position. 2. Small tubular structure adjacent to the left ovary only seen on a single image which likely represents adjacent bowel. However, recommend correlation with a test to exclude the less likely possibility of an ectopic . Laboratory Results 04/09/17 11:10 Red Blood Count 5.08, Mean Corpuscular Volume 84.3, Mean Corpuscular Hemoglobin 27.8, Mean Corpuscular Hemoglobin Concent 32.9, Mean Platelet Volume 10.4, Neutrophils (%) (Auto) 52.1, Lymphocytes (%) (Auto) 32.7, Monocytes (%) (Auto) 11.1, Eosinophils (%) (Auto) 2.8, Basophils (%) (Auto) 0.8, Neutrophils # (Auto ) 3.39, Lymphocytes # (Auto) 2.12, Monocytes # (Auto) 0.72, Eosinophils # (Auto ) 0.18, Basophils # (Auto) 0.05 04/09/17 11:10 Test 04/09/17 11:10 White Blood Count 6.49 K/uL (4.8-10.8) Red Blood Count 5.08 M/uL (4.2-5.4) Hemoglobin 14.1 g/dL (12.0-16.0) Hematocrit 42.8 % (37-47) Mean Corpuscular Volume 84.3 fL (80-100) Mean Corpuscular Hemoglobin 27.8 pg (25-34) Mean Corpuscular Hemoglobin Concent 32.9 g/dl (32-36) Platelet Count 388 K/uL (130-400) Mean Platelet Volume 10.4 fL (7.4-10.4) Neutrophils (%) (Auto) 52.1 % Lymphocytes (%) (Auto) 32.7 % Monocytes (%) (Auto) 11.1 % Eosinophils (%) (Auto) 2.8 % Basophils (%) (Auto) 0.8 % Neutrophils # (Auto) 3.39 K/uL (1.4-6.5) Lymphocytes # (Auto) 2.12 K/uL (1.2-3.4) Monocytes # (Auto) 0.72 K/uL (0.11-0.59) Eosinophils # (Auto) 0.18 K/uL (0-0.5) Basophils # (Auto) 0.05 K/uL (0-0.2) RDW Standard Deviation 45.9 fL (36.4-46.3) RDW Coefficient of Variation 14.9 % (11.5-14.5) Immature Granulocyte % (Auto) 0.5 % Immature Granulocyte # (Auto) 0.03 K/uL (0.00-0.02) Urine Color YELLOW Urine Appearance CLEAR (CLEAR) Urine pH 7.0 (4.5-7.5) Urine Specific [place] 1.025 (1.000-1.030) Urine Protein NEG (NEG) Urine Glucose (UA) NEG (NEG) Urine Ketones NEG (NEG) Urine Occult Blood NEG (NEG) Urine Nitrite NEG (NEG) Urine Bilirubin NEG (NEG) Urine Urobilinogen NEG (NEG) Urine Leukocyte Esterase NEG (NEG) Urine Test NEG (NEG) Anion Gap 6.0 mmol/L (3-11) Est Creatinine Clear Calc Drug Dose 100.8 ml/min Estimated GFR () 128.4 Estimated GFR (Non- 110.8 BUN/Creatinine Ratio 16.4 (10-20) Calcium Level 9.1 mg/dl (8.5-10.1) Medications Administered Medications (Trade) Dose Ordered Sig/Octaviano Route Start Time Stop Time Status Last Admin Dose Admin Ketorolac Tromethamine (Toradol Inj) 30 mg NOW STAT IV 04/09/17 11:30 04/09/17 11:32 DC 04/09/17 11:42 30 MG Ondansetron HCl (Zofran Inj) 4 mg NOW STAT IV 04/09/17 11:30 04/09/17 11:32 DC 04/09/17 11:43 4 MG Sodium Chloride 1,000 ml @ 999 mls/hr Q1H1M STAT IV 04/09/17 11:30 04/09/17 12:30 DC 04/09/17 11:43 999 MLS/HR ED Course The patient was seen and evaluated as above. Her old records are reviewed. IV lock was initiated and laboratory studies were collected. She provided a urine sample, which was dipped and was clear. test was negative. The patient was medicated with Zofran 4 mg and Toradol 30 mg IV. CBC, BMP and urinalysis were performed. Given her pelvic pain, pelvic ultrasound was obtained. Urine microscopy again confirmed urine was clear without signs of infection. White count is not elevated. H&H is normal. Electrolytes are within normal limits. Pelvic ultrasound demonstrated the intrauterine device to be in good position. Endometrial lining measuring 3 mm in thickness. There was no obvious adnexal lesions or cysts area of a small tubular structure adjacent to the left ovary seen on the single image only likely represented bowel, ectopic is unlikely given the negative test. All laboratory and diagnostic imaging studies were reviewed with the patient. She reported good relief of her pain with the IV Toradol. She rated her discomfort a 2/10 at reassessment and a 0/10 at discharge. I did offer to perform a pelvic exam with cultures at this time, but the patient defers, as she states that she has an appointment scheduled with her personal sales solutions associate in 2 days for the same evaluation. She does not want to undergo 2 pelvic exams. PID is felt to be unlikely, therefore was felt that she could wait until she sees her sales solutions associate. Patient was discharged home in good condition. She will keep her gynecology appointment as she has scheduled. Differential diagnoses entertained included UTI, pyelonephritis, renal colic, dysmenorrhea, ovarian cyst, , ectopic , PID, tubo-ovarian abscess, constipation, scarring/adhesions, among others. Medical Decision See ED Course. [place] Drug Monitoring Program Search Results: patient reviewed within database, no issues identified Medication Reconcilliation Current Medication List: was personally reviewed by [place] Blood Pressure Screening Patient's blood pressure: Normal blood pressure Blood pressure disposition: Did not require urgent referral Impression Primary Impression: Pelvic pain Departure Information Referrals No Doctor, Assigned (PCP) Patient Instructions My [facility] Additional Instructions Ibuprofen(Motrin, Advil) may be used for fever or pain. Use 600mg every six hours as needed. Take with food. Avoid using more than 2400mg in a 24 hour period. Do not use 2400mg per day for more than three consecutive days without physician direction. Prolonged inappropriate use can lead to stomach upset or ulcers. This is available over the counter and typically comes in 200mg tablets. (AND/OR) Acetaminophen(Tylenol) may be used for fever or pain. Use 1000mg every eight hours as needed. Avoid using more than 3000mg in a 24 hour period. This is available over the counter. Rest and drink plenty of fluids as tolerated. Slow sips of water or sports drinks are recommended instead of large amounts all at once. Continue current medications. Diet and activity as tolerated. Once your stomach is settled start with a clear liquid diet (jello, soup broth, etc.) and then advance as tolerated. You should avoid full, heavy meals for about 24 hrs from the time your symptoms resolved. Return to the ER immediately for worsening or persistent pelvic pain, persistent vomiting, fevers, worsening of your condition, or as needed. Follow up with your ROLFER as scheduled on Monday.
[2017-04-09 14:11] VITALS: BP 118/76; PULSE 68; O2SAT 99
== END 2017-04-09 14:13 | disposition home or self-care (01) ==
LOC: C.EDB 10:47 → C.EDC 14:13
DX: R10.2 Pelvic and perineal pain (principal); F41.9 Anxiety disorder, unspecified; F32.9 Major depressive disorder, single episode, unspecified; F43.10 Post-traumatic stress disorder, unspecified; F17.200 Nicotine dependence, unspecified, uncomplicated; Z87.442 Personal history of urinary calculi; Z87.440 Personal history of urinary (tract) infections

== ENCOUNTER 2017-07-31 14:00 | Emergency (ER) | payer OTHER ==
[~2017-07-31] VITALS: Ht 157.5 cm; Wt 64.0 kg
[~2017-07-31 14:00] MED LIST changes: +CITA20TA4 PO; +CLON0.5T3 PO; -MTR600X PO; -OXYC-57 PO; -SERT50TA PO
[2017-07-31 14:04] VITALS: TEMP 36.9; Ht 157.5 cm; Wt 64.0 kg
[2017-07-31 16:22] LABS: BASO % 0.6 %; BASO ABS # 0.04 K/uL (0-0.2); EOS ABS # 0.13 K/uL (0-0.5); HEMATOCRIT 43.3 % (37-47); HEMOGLOBIN 14.1 g/dL (12.0-16.0); IG# 0.03 K/uL (0.00-0.02); LYMPH % 32.7 %; LYMPH ABS # 2.18 K/uL (1.2-3.4); MEAN CELL VOLUME 86.6 fL (80-100); MEAN CORPUSCULAR HEMOGLOBIN 28.2 pg (25-34); MEAN CORPUSCULAR HGB CONC 32.6 g/dl (32-36); MEAN PLATELET VOLUME 10.7 fL (7.4-10.4); MONO % 11.1 %; MONO ABS # 0.74 K/uL (0.11-0.59); NEUT % 53.1 %; NEUT ABS # 3.54 K/uL (1.4-6.5); PLATELET COUNT 415 K/uL (130-400); RED CELL DISTRIBUTION WIDTH CV 13.6 % (11.5-14.5); RED CELL DISTRIBUTION WIDTH SD 43.2 fL (36.4-46.3); WHITE BLOOD COUNT 6.66 K/uL (4.8-10.8)
[2017-07-31 16:47] LABS: CALCIUM 9.1 mg/dl (8.5-10.1); CREATININE 0.67 mg/dl (0.60-1.20); POTASSIUM 4.3 mmol/L (3.5-5.1)
[2017-07-31 16:50] LABS: TOTAL PROTEIN 7.9 gm/dl (6.4-8.2)
[2017-07-31] MEDS ORDERED: VNTHFA/IN INH (17:20)
[2017-07-31 17:45] VITALS: BP 115/70; PULSE 66; O2SAT 100
--- NOTE | 2017-07-31 22:24 | EMERGENCY ROOM VISIT NOTE ---
History Report prepared by Arcadio: Mack Booth Under the Supervision of: Dr. Gabriele Faustin D.O. First contact with patient: 15:49 Chief Complaint: ABDOMINAL PAIN Stated Complaint: NO APPETITE, ABDOMINAL PAIN Nursing Triage Summary: has had abd pain and diarrrhea for 2 months and thinks its related to her c section in november 2016 History of Present Illness The patient is a 26 year old female who presents to the Emergency Room with complaints of persistent diarrhea for the past 3 months. The patient states that she has a bowel movement every time she eats anything, and she states that if she does not eat, then she will not have any diarrhea. She states that she has diarrhea around 5 times per day. She additionally notes that she has been nauseous and vomiting, and the last time she vomited was a week ago. The patient states that she gets some abdominal pain before having diarrhea, and she is having some intermittent pain with urination. The patient notes that she had similar symptoms in November 2016 after having a . She states that she has not follow up with GI or [employer] for the issues the past few months. She still has her appendix and gall bladder, and she states that her last period was two weeks ago. The patient denies any recent hiking, travelling, or drinking from streams, and she denies working in the medical field. She additionally notes that she recently had her Klonopin dose increased. Source of History: patient Onset: 3 months ago Position: other (global) Quality: other (diarrhea) Timing: other (persistent) Associated Symptoms: + nausea, + vomiting, + abdominal pain Note: Associated symptoms: Pain with urination Review of Systems See HPI for pertinent positives & negatives. A total of 10 systems reviewed and were otherwise negative. Past Medical & Surgical Medical Problems: (1) Anxiety Disorder, Unspecified (2) Back pain affecting in third trimester (3) Depression (4) Edema of lower extremity in third trimester, antepartum (5) Frequent UTI (6) Kidney stones (7) Lumbago (8) Post-dates (9) Post-Traumatic Stress Disorder, Unspecified Surgical Problems: (1) H/O section Social History Smoking Status: Current Every Day Smoker Marital Status: in relationship Housing Status: lives with family Occupation Status: employed Current/Historical Medications Scheduled Albuterol Hfa (Ventolin Hfa), 2-4 PUFFS INH Q6H Citalopram Hydrobromide (Citalopram Hydrobromide), 20 MG PO DAILY Scheduled PRN Clonazepam (Klonopin), 1 MG PO BID PRN for Anxiety Valacyclovir (Valtrex), 500 MG PO DAILY PRN for BREAKOUT Allergies Coded Allergies: No Known Allergies (Unverified , 07/31/17) Physical Exam Vital Signs Date Time Temp Pulse Resp B/P (MAP) Pulse Ox O2 Delivery O2 Flow Rate FiO2 07/31/17 17:45 66 20 115/70 100 07/31/17 17:13 75 16 124/74 100 Room Air 07/31/17 16:21 62 07/31/17 16:07 62 16 115/68 100 Room Air 07/31/17 14:04 36.9 82 16 120/76 97 Physical Exam GENERAL: Sitting up in bed, alert, well appearing, well nourished, no distress, non-toxic EYE EXAM: normal conjunctiva. OROPHARYNX: no exudate, no erythema, lips, buccal mucosa, and tongue normal and mucous membranes are moist NECK: supple, no nuchal rigidity, no adenopathy, non-tender LUNGS: Clear to auscultation. Normal chest wall mechanics HEART: no murmurs, S1 normal and S2 normal ABDOMEN: abdomen soft, non-tender, normo-active bowel sounds, no masses, no rebound or guarding. BACK: Back is symmetrical on inspection and there is no deformity, no midline tenderness, no CVA tenderness. SKIN: no rashes and no bruising UPPER EXTREMITIES: upper extremities are grossly normal. LOWER EXTREMITIES: No pitting edema. NEURO EXAM: Normal sensorium, cranial nerves II-XII grossly intact, normal speech, no gross weakness of arms, no gross weakness of legs. Medical Decision & Procedures Laboratory Results 07/31/17 16:00 Red Blood Count 5.00, Mean Corpuscular Volume 86.6, Mean Corpuscular Hemoglobin 28.2, Mean Corpuscular Hemoglobin Concent 32.6, Mean Platelet Volume 10.7, Neutrophils (%) (Auto) 53.1, Lymphocytes (%) (Auto) 32.7, Monocytes (%) (Auto) 11.1, Eosinophils (%) (Auto) 2.0, Basophils (%) (Auto) 0.6, Neutrophils # (Auto ) 3.54, Lymphocytes # (Auto) 2.18, Monocytes # (Auto) 0.74, Eosinophils # (Auto ) 0.13, Basophils # (Auto) 0.04 07/31/17 16:00 Test 07/31/17 16:00 White Blood Count 6.66 K/uL (4.8-10.8) Red Blood Count 5.00 M/uL (4.2-5.4) Hemoglobin 14.1 g/dL (12.0-16.0) Hematocrit 43.3 % (37-47) Mean Corpuscular Volume 86.6 fL (80-100) Mean Corpuscular Hemoglobin 28.2 pg (25-34) Mean Corpuscular Hemoglobin Concent 32.6 g/dl (32-36) Platelet Count 415 K/uL (130-400) Mean Platelet Volume 10.7 fL (7.4-10.4) Neutrophils (%) (Auto) 53.1 % Lymphocytes (%) (Auto) 32.7 % Monocytes (%) (Auto) 11.1 % Eosinophils (%) (Auto) 2.0 % Basophils (%) (Auto) 0.6 % Neutrophils # (Auto) 3.54 K/uL (1.4-6.5) Lymphocytes # (Auto) 2.18 K/uL (1.2-3.4) Monocytes # (Auto) 0.74 K/uL (0.11-0.59) Eosinophils # (Auto) 0.13 K/uL (0-0.5) Basophils # (Auto) 0.04 K/uL (0-0.2) RDW Standard Deviation 43.2 fL (36.4-46.3) RDW Coefficient of Variation 13.6 % (11.5-14.5) Immature Granulocyte % (Auto) 0.5 % Immature Granulocyte # (Auto) 0.03 K/uL (0.00-0.02) Urine Color YELLOW Urine Appearance CLEAR (CLEAR) Urine pH 7.5 (4.5-7.5) Urine Specific [place] 1.023 (1.000-1.030) Urine Protein NEG (NEG) Urine Glucose (UA) NEG (NEG) Urine Ketones NEG (NEG) Urine Occult Blood NEG (NEG) Urine Nitrite NEG (NEG) Urine Bilirubin NEG (NEG) Urine Urobilinogen NEG (NEG) Urine Leukocyte Esterase NEG (NEG) Urine WBC (Auto) 1-5 /hpf (0-5) Urine RBC (Auto) 5-10 /hpf (0-4) Urine Hyaline Casts (Auto) 1-5 /lpf (0-5) Urine Epithelial Cells (Auto) >30 /lpf (0-5) Urine Bacteria (Auto) 1+ (NEG) Urine Test NEG (NEG) Anion Gap 5.0 mmol/L (3-11) Est Creatinine Clear Calc Drug Dose 112.8 ml/min Estimated GFR () 141.6 Estimated GFR (Non- 122.2 BUN/Creatinine Ratio 14.0 (10-20) Calcium Level 9.1 mg/dl (8.5-10.1) Total Bilirubin 0.6 mg/dl (0.2-1) Direct Bilirubin 0.1 mg/dl (0-0.2) Aspartate Amino Transf (AST/SGOT) 10 U/L (15-37) Alanine Aminotransferase (ALT/SGPT) 19 U/L (12-78) Alkaline Phosphatase 63 U/L (45-117) Total Protein 7.9 gm/dl (6.4-8.2) Albumin 4.0 gm/dl (3.4-5.0) Lipase 119 U/L (73-393) Laboratory results per my review. ED Course ED COURSE: Vital signs were reviewed and showed normal vitals The patients medical record was reviewed The above diagnostic studies were performed and reviewed. ED treatments and interventions as stated above. 1549: The patient was evaluated in room A4. A complete history and physical examination was performed. 1733: Upon reevaluation, the patient is doing well.I discussed my findings with the patient and she understands and agrees with the treatment plan. Based on the patients age, coexisting illnesses, exam and lab findings the decision to treat as an outpatient was made. The patient remained stable while under my care. The patient appeared well at the time of discharge. Medical Decision Differential diagnoses includes but is not limited to gastritis, peptic ulcer disease, GERD, gallbladder disease, pancreatitis, small bowel obstruction, acute coronary syndrome, pericarditis, ischemic bowel, irritable bowel disease, irritable bowel syndrome, appendicitis, diverticulitis, malignancy, hernia, urinary tract infection, torsion, /ectopic , perforation, trauma, infectious. Patient is a 26-year-old female who presents to ER for diarrhea which has been present for the past year. She notes that over the past 3 months it has recurred. CBC all BMP, LFTs, bilirubin and lipase was unremarkable. UA was negative. was negative. Patient had a completely benign abdominal exam. She had absolutely no pain while in the ER. She notes that she gets pain /cramping after eating which is followed by diarrhea. No recent travel, backpacking or hiking. No treatment. She is. No history of C. difficile. Discussed with Pt concerning signs and symptoms to watch out for. Pt was instructed to follow up with their PCP and discussed with the patient their option to return to the ED at anytime for persistent or worsening symptoms. The appropriate anticipatory guidance and out-patient management, including indications for return to the emergency department, were explained at length to the patient and understood. Medication Reconcilliation Current Medication List: was personally reviewed by me Blood Pressure Screening Patient's blood pressure: Normal blood pressure Impression Primary Impression: Diarrhea Scribe Attestation The scribe's documentation has been prepared under my direction and personally reviewed by me in its entirety. I confirm that the note above accurately reflects all work, treatment, procedures, and medical decision making performed by me. Departure Information Dispostion Home / Self-Care Referrals JO VELÁZQUEZ (PCP) Forms HOME CARE DOCUMENTATION FORM, IMPORTANT VISIT INFORMATION Patient Instructions ED Diarrhea Viral, My [facility] Additional Instructions Please follow up with your primary care doctor with in the next 24 hours. Any worsening of your symptoms, please return to the ED immediately. This includes any fevers greater than 100.4, worsening pain, chest pain, shortness breath, persistent nausea, vomiting, unable to eat or drink, or any other concerning signs or symptoms from your standpoint. Please follow up with her primary care doctor in the next 1-2 days. You will likely benefit from giving a stool sample. Problem Qualifiers Primary Impression: Diarrhea Diarrhea type: unspecified type Qualified Codes: R19.7 - Diarrhea, unspecified
== END 2017-07-31 17:46 | disposition home or self-care (01) ==
LOC: C.EDB 14:02 → C.EDA 17:46
DX: R19.7 Diarrhea, unspecified (principal); F32.9 Major depressive disorder, single episode, unspecified; F17.200 Nicotine dependence, unspecified, uncomplicated; Z87.440 Personal history of urinary (tract) infections; Z87.442 Personal history of urinary calculi; Z98.891 History of uterine scar from previous surgery; Z79.899 Other long term (current) drug therapy

== ENCOUNTER 2017-10-05 00:02 | Emergency (ER) | payer OTHER ==
[~2017-10-05] VITALS: Ht 157.5 cm; Wt 66.0 kg
[2017-10-05 00:05] VITALS: TEMP 36.5; Ht 157.5 cm; Wt 66.0 kg
[2017-10-05 00:28] VITALS: O2SAT 100
[2017-10-05] MEDS ORDERED: OPTIRAY 320 IV PRN (00:30)
[2017-10-05 00:48] LABS: BASO % 0.7 %; BASO ABS # 0.06 K/uL (0-0.2); EOS % 2.2 %; EOS ABS # 0.18 K/uL (0-0.5); HEMATOCRIT 46.4 % (37-47); HEMOGLOBIN 15.7 g/dL (12.0-16.0); IG# 0.07 K/uL (0.00-0.02); LYMPH % 38.7 %; MEAN CELL VOLUME 86.7 fL (80-100); MEAN CORPUSCULAR HEMOGLOBIN 29.3 pg (25-34); MEAN CORPUSCULAR HGB CONC 33.8 g/dl (32-36); MEAN PLATELET VOLUME 10.5 fL (7.4-10.4); MONO % 10.8 %; MONO ABS # 0.89 K/uL (0.11-0.59); NEUT % 46.8 %; NEUT ABS # 3.86 K/uL (1.4-6.5); PLATELET COUNT 424 K/uL (130-400); RED CELL DISTRIBUTION WIDTH CV 14.7 % (11.5-14.5); WHITE BLOOD COUNT 8.26 K/uL (4.8-10.8)
[2017-10-05 01:06] LABS: ALBUMIN 4.5 gm/dl (3.4-5.0); CALCIUM 9.3 mg/dl (8.5-10.1); CREATININE 0.7 mg/dl (0.60-1.20)
[2017-10-05 01:09] LABS: TOTAL PROTEIN 8.4 gm/dl (6.4-8.2)
[2017-10-05] MEDS ORDERED: POTASSIUM CHLORIDE 10 MEQ TABCR PO STA (01:51)
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
[2017-10-05 02:48] VITALS: BP 118/65; PULSE 101; O2SAT 99
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
== END 2017-10-05 02:49 | disposition home or self-care (01) ==
LOC: EDBD 00:02 → C.EDC 00:05
DX: T51.91XA Toxic effect of unspecified alcohol, accidental (unintentional), initial encounter (principal); E87.6 Hypokalemia; S09.90XA Unspecified injury of head, initial encounter; V49.40XA Driver injured in collision with unspecified motor vehicles in traffic accident, initial encounter; F41.9 Anxiety disorder, unspecified

== ENCOUNTER → 2017-10-05 | Outpatient (CLI) | payer OTHER ==
[~2017-10-05] MED LIST changes: -FERR50TA3; +VNTHFA/IN INH
== END | disposition home or self-care (01) ==
LOC: C.LAB 00:33
DX: Z04.8 Encounter for examination and observation for other specified reasons (principal)